=== PATIENT | female | born 1960 | race Caucasian/White ===

== ENCOUNTER 2016-06-13 22:01 | Emergency (ER) | payer OTHER ==
[~2016-06-13] VITALS: Ht 157.5 cm; Wt 72.1 kg
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
[2016-06-13] MEDS ORDERED: CLONAZEPAM2 M2 PO (22:49)
[2016-06-13] MEDS ORDERED: OMEPRAZOLE20 M2 PO (22:50)
[2016-06-13] MEDS ORDERED: LEVOCETIRIZINE D5 M1 PO (22:50)
[2016-06-13] MEDS ORDERED: OXYCODONE HCL10 M2 PO (22:51)
[2016-06-13] MEDS ORDERED: KADIAN30 M1 PO (22:51)
[2016-06-13] MEDS ORDERED: ONDANSETRON HCL4 MG PO (22:52)
[2016-06-13] MEDS ORDERED: LEVSIN-SL0.125 MG SL (22:52)
[2016-06-13] MEDS ORDERED: RELPAX40 M1 PO (22:53)
[2016-06-13 23:10] LABS: ABSOLUTE BASOPHIL COUNT 0 /CUMM (0.0-0.2); ABSOLUTE EOSINOPHIL COUNT 0 /CUMM (0.0-0.7); ABSOLUTE GRANULOCYTE CT 4.6 /CUMM (1.4-6.5); ABSOLUTE MONOCYTE COUNT 0.5 /CUMM (0.10-0.60); BASOPHIL % 0.3 % (0.0-2.0); EOSINOPHIL % 0.6 % (0-5); GRANULOCYTE % 74.5 % (42.2-75.2); HEMATOCRIT 36.5 % (37-47); MEAN CORPUSCULAR HGB 29.5 PG (27.0-31.0); MEAN CORPUSCULAR HGB CONC 33.3 G/DL (33.0-37.0); MEAN CORPUSCULAR VOLUME 88.6 FL (81.0-99.0); MEAN PLATELET VOLUME 8.2 FL (7.4-10.4); PLATELET COUNT 258 /CUMM (130-400); RBC DISTRIBUTION WIDTH 14.6 % (11.5-14.5); RED BLOOD CELL CT 4.12 /CUMM (4.20-5.40); WHITE BLOOD CELL COUNT 6.1 /CUMM (4.8-10.8)
--- NOTE | 2016-06-14 08:23 | ULTRASOUND REPORT ---
EXAMINATION: US SOFT TISSUE NECK CLINICAL INFORMATION: Immovable mass right anterior cervical chain. COMPARISON: None TECHNIQUE: Real-time sonographic imaging of the right neck was performed by the technologist using a high-resolution linear 12 MHz transducer. The static images are submitted for review. FINDINGS: The right submandibular gland has normal size, contour and echotexture. The visualized lymph nodes of the right jugular chain are in the normal size range. The largest lymph node of the right suprahyoid neck measures 0.7 cm AP and its gfjs-at-[id number] axis ratio is normal (i.e., > 2). This lymph node has normal vascularity on color Doppler imaging. There are no cystic or necrotic appearing lymph nodes within the visualized neck. No focal fluid collection or superficial soft tissue mass. IMPRESSION: No evidence of soft tissue mass or pathologic sized lymph nodes within the examined neck..
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
[2016-06-14 11:40] VITALS: BP 149/75
== END 2016-06-14 12:47 ==
LOC: ERH 22:01
PROVIDERS: Emergency Medicine
DX: F32.9 Major depressive disorder, single episode, unspecified (principal); R45.851 Suicidal ideations
CPT/HCPCS: 80307; G0463; G0480; J3030